=== PATIENT | female | born 1960 | race Caucasian/White ===

== ENCOUNTER 2018-12-16 10:49 | Emergency (ER) | payer MEDICARE, MEDICAID ==
[2018-12-16] MEDS ORDERED: traMADol HCl 50 MG TAB ONE (11:14)
[2018-12-16] MEDS ORDERED: Ketorolac Tromethamine 30 MG/ML VIAL ONE (11:49)
[2018-12-16] MEDS ORDERED: Adacel (T-DAP) 0.5 ML SYRINGE ONE (11:50)
--- NOTE | 2018-12-16 12:15 | RAD ---
RIGHT FOOT 3 VIEWS: Date: 12/16/18 HISTORY: Right foot injury. FINDINGS: Lisfranc joint alignment is anatomic. Plantar arch is maintained. Mild joint space narrowing and subc hondral sclerosis at the first metatarsophalangeal joint. No acute fracture, dislocation, or aggressi ve osseous erosions. IMPRESSION: Mild osteoarthritic changes. No acute osseous abnormalities are demonstrated. POS: [facility]
== END 2018-12-16 12:15 | disposition home or self-care (01) ==
LOC: NAV ERS 10:49
DX: S92.521A Displaced fracture of middle phalanx of right lesser toe(s), initial encounter for closed fracture (principal); F60.3 Borderline personality disorder; F17.210 Nicotine dependence, cigarettes, uncomplicated; W20.8XXA Other cause of strike by thrown, projected or falling object, initial encounter
CPT/HCPCS: 90471; 90715; 96372; J1885

== ENCOUNTER 2019-06-22 21:53 | Emergency (ER) | payer MEDICARE ==
[2019-06-22] MEDS ORDERED: traMADol HCl 50 MG TAB ONE (22:12)
[2019-06-22] MEDS ORDERED: Ondansetron ODT 4 MG TAB ONE (22:30)
--- NOTE | 2019-06-22 22:31 | RAD ---
EXAM: 3 views of the right wrist HISTORY: Wrist pain COMPARISON: None FINDINGS: 3 views of the right wrist shows no evidence of acute fracture or dislocation. No soft tiss ue swelling is seen. No degenerative changes are present. IMPRESSION: No evidence of acute osseous abnormality.
== END 2019-06-22 23:00 | disposition home or self-care (01) ==
LOC: NAV ERS 21:53
DX: S63.501A Unspecified sprain of right wrist, initial encounter (principal); S40.022A Contusion of left upper arm, initial encounter; F17.210 Nicotine dependence, cigarettes, uncomplicated; W18.30XA Fall on same level, unspecified, initial encounter
CPT/HCPCS: Q0162

== ENCOUNTER 2019-08-18 16:45 | Emergency (ER) | payer MEDICARE ==
--- NOTE | 2019-08-18 17:13 | RAD ---
LEFT FOOT THREE VIEWS: HISTORY: Foot injury. FINDINGS: There are no signs of fracture or dislocation or other bony findings. IMPRESSION: Negative left foot. POS: [facility]
[2019-08-18] MEDS ORDERED: Ketorolac Tromethamine 30 MG/ML VIAL ONE (17:54)
== END 2019-08-18 18:27 | disposition home or self-care (01) ==
LOC: NAV ERS 16:45
DX: S90.32XA Contusion of left foot, initial encounter (principal); F43.10 Post-traumatic stress disorder, unspecified; F17.210 Nicotine dependence, cigarettes, uncomplicated; W01.0XXA Fall on same level from slipping, tripping and stumbling without subsequent striking against object, initial encounter
CPT/HCPCS: 96372; J1885

== ENCOUNTER 2021-05-31 17:13 | Emergency (ER) | payer MEDICARE, MEDICAID ==
[~2021-05-31 17:13] MED LIST: Iopamidol 370 76% 100 ML VIAL ONE
[2021-05-31] MEDS ORDERED: Morphine 4 MG/ML VIAL ONE (17:29)
[2021-05-31 17:48] LABS: #Eosinphils 0.1 thou/uL (0.0-0.7); #Lymphocytes 1.8 thou/uL (1.20-3.40); #Monocytes 0.3 thou/uL (0.11-0.59); #Neutrophils 4.3 thou/uL (1.40-6.50); %Basophils 0.7 % (0.0-1.0); %Eosinophils 1.1 % (0.0-10.0); %Lymphocytes 27.1 % (21.0-51.0); %Neutrophils 66.2 % (42.0-75.0); Hemoglobin 12.9 g/dL (12.0-16.0); Mean Corpuscular HGB CONC 31.1 g/dL (32.0-36.0); Mean Corpuscular Hemoglobin 30.2 pg (27.0-31.0); Mean Corpuscular Volume 97.3 fL (78.0-98.0); Mean Platelet Volume 8.9 fL (7.4-10.4); Platelet Count 263 thou/uL (130-400); RBC Distribution Width 13.3 % (11.5-14.5); Red Blood Cell (RBC) Count 4.25 mill/uL (4.20-5.40); White Blood Cell (WBC) Count 6.5 thou/uL (4.8-10.8)
[2021-05-31 18:04] LABS: ALT (SGPT) 6 U/L (8-55); AST (SGOT) 10 U/L (5-34); Albumin 3.7 g/dL (3.4-4.8); Alkaline Phosphatase 74 U/L (40-110); Anion Gap 12 mmol/L (10-20); BUN (Urea Nitrogen) 11 mg/dL (9.8-20.1); Bilirubin, Total 0.4 mg/dL (0.2-1.2); Calc. Creatinine Clearance 0 mL/min (70-130); Calcium 9.2 mg/dL (7.8-10.44); Carbon Dioxide 27 mmol/L (23-31); Chloride 104 mmol/L (98-107); Globulin 2.9 g/dL (2.4-3.5); Glucose 108 mg/dL (80-115); Lipase 7 U/L (8-78); Potassium 3.9 mmol/L (3.5-5.1); Protein, Total 6.6 g/dL (5.8-8.1); Sodium 139 mmol/L (136-145)
[2021-05-31] MEDS ORDERED: Ondansetron PF 4 MG/2 ML Vial ONE (18:59)
== END 2021-05-31 19:10 | disposition home or self-care (01) ==
LOC: NAV ERS 17:13
DX: R10.9 Unspecified abdominal pain (principal); I10 Essential (primary) hypertension; F17.210 Nicotine dependence, cigarettes, uncomplicated
CPT/HCPCS: 74177; 80053; 83605; 83690; 85025; 96374; 96375; J2270; J2405; Q9967

== ENCOUNTER 2021-07-17 05:16 | Emergency (ER) | payer MEDICARE, MEDICAID ==
[2021-07-17 05:35] LABS: Bilirubin Negative (Negative); Blood, Urine Small (Negative); Clarity Clear (Clear); Glucose, Urine (Dipstick) Negative (Negative); Ketone, Urine Negative (Negative); Leukocyte Trace (Negative); Nitrite Negative (Negative); Protein, Urine (Dipstick) Negative (Neg-Trace); Urobilinogen 0.2 mg/dL (Less than 2); pH, Urine 5.5 (5.0-9.0)
[2021-07-17 05:36] LABS: Specific Gravity, Urine 1.026 (1.002-1.036)
[2021-07-17 05:37] LABS: RBC/HPF 0-3 HPF (0-3); Squamous Epithelial 0-3 HPF (0-3); WBC/HPF 0-3 HPF (0-3)
[2021-07-17 05:38] LABS: Bacteria/HPF Rare-Few HPF (None Seen)
[2021-07-17 05:39] LABS: Hemoglobin 12.9 g/dL (12.0-16.0); Mean Corpuscular Hemoglobin 31.4 pg (27.0-31.0); Mean Platelet Volume 8.2 fL (7.4-10.4); Platelet Count 246 thou/uL (130-400); Red Blood Cell (RBC) Count 4.11 mill/uL (4.20-5.40); White Blood Cell (WBC) Count 10.3 thou/uL (4.8-10.8)
[2021-07-17 05:42] LABS: Band 6 % (5-11); Lymphocytes 13 % (21-51); MDiff Complete? YES; Monocytes 2 % (0-10); Neutrophil 79 % (42-75); Platelet Morphology Comment Appears Adequate; RBC Morphology Normal
[2021-07-17 05:46] LABS: Anion Gap 13 mmol/L (10-20); BUN (Urea Nitrogen) 8 mg/dL (9.8-20.1); Calc. Creatinine Clearance 0 mL/min (70-130); Carbon Dioxide 26 mmol/L (23-31); Chloride 96 mmol/L (98-107); Glucose 112 mg/dL (80-115); Potassium 3.5 mmol/L (3.5-5.1); Sodium 131 mmol/L (136-145)
[2021-07-17] MEDS ORDERED: Sodium Chloride 0.9% 100 ML ONE (06:08)
[2021-07-17] MEDS ORDERED: Metoclopramide HCl 10 MG/2 ML VIAL ONE (06:08)
[2021-07-17] MEDS ORDERED: Ketorolac Tromethamine 30 MG/ML VIAL ONE (06:08)
[2021-07-17 06:19] LABS: Cocaine Metabolite Screen Detected (NotDetected); Methamphetamine Detected (NotDetected); Phencyclidine (PCP) Not Detected (NotDetected); THC/Cannabinoid Screen Detected (NotDetected)
[2021-07-17 06:20] LABS: Amphetamine Detected (NotDetected); Barbiturates Screen Not Detected (NotDetected); Benzodiazepine Screen Not Detected (NotDetected); Medtox Control Line Valid? VALID (VALID); Methadone Not Detected (NotDetected); Opiate Screen Not Detected (NotDetected); Oxycodone Screen Not Detected (NotDetected); Tricyclic Screen Not Detected (NotDetected)
[2021-07-17] MEDS ORDERED: metroNIDAZOLE 500 MG TAB ONE (07:21)
[2021-07-17] MEDS ORDERED: Cipro 250 MG TAB ONE (07:21)
[2021-07-17] MEDS ORDERED: Iopamidol 370 76% 100 ML VIAL ONE (09:00)
== END 2021-07-17 07:30 | disposition home or self-care (01) ==
LOC: NAV ERS 05:16
DX: K52.9 Noninfective gastroenteritis and colitis, unspecified (principal); F17.210 Nicotine dependence, cigarettes, uncomplicated
CPT/HCPCS: 74177; 80048; 80306; 81003; 81015; 83690; 85025; 96365; 96375; J1885; J2765; Q9967

== ENCOUNTER 2021-09-20 12:26 | Emergency (ER) | payer MEDICARE, MEDICAID ==
[2021-09-20] MEDS ORDERED: Ibuprofen 800 MG TAB ONE (12:53)
== END 2021-09-20 13:51 | disposition home or self-care (01) ==
LOC: NAV ERS 12:26
DX: S29.011A Strain of muscle and tendon of front wall of thorax, initial encounter (principal); J06.9 Acute upper respiratory infection, unspecified; F17.210 Nicotine dependence, cigarettes, uncomplicated; Z79.899 Other long term (current) drug therapy
CPT/HCPCS: 71046; 87804